=== PATIENT | male | born 1970 | race Caucasian/White ===

== ENCOUNTER 2020-12-12 18:07 | Emergency (ER) | payer OTHER, MEDICAID, SELFPAY ==
[~2020-12-12] VITALS: Ht 165.1 cm; Wt 86.2 kg
[~2020-12-12 18:07] MED LIST: ALBU8.5H8 INH; ARIP30TA PO; BENZ2TAB65 PO; CAT.1 PO; DICL20GE TP; DIPH50CA38 PO; DIVA-74 PO; DIVA500T2 PO; DOCU-192 PO; IBUP-1969 PO; IPRA4AER INH; LISI10TA PO; LOM2.5 PO; MELO15TA13 PO; OMEG1CAP55 PO; OMEP20CA15 PO; RISP2TAB5 PO; TRAZ-251 PO; ZOLP10TA2 PO
--- NOTE | 2020-12-12 18:07 | NUR ---
DR GUTIERRES IN TO ASSESS
--- NOTE | 2020-12-12 18:10 | NUR ---
BIB EMT FROM STREETS DUE TO LBP RESULTING FROM FALL. HX OF DD/MR. POOR HISTORIAN. ALERT, CALM, RESP UNLABORED, NO DISTRESS
[2020-12-12] MEDS ORDERED: HYDROcodone/ACETAMIN 5-325 MG TAB (NORCO/ VICODIN) PO ONE (18:15)
[2020-12-12] MEDS ORDERED: IBUPROFEN 800 MG TABLET PO ONE (18:15)
[2020-12-12 18:24] VITALS: BP_SYST 104
--- NOTE | 2020-12-12 18:32 | NUR ---
BACK FROM X-RAY,. GUARDED GAIT, SLOW TO MOVE DUE TO PAIN
[2020-12-12 18:37] LABS: EOSINOPHILS % (AUTO) 0.3 % (0.0-4.0); HEMOGLOBIN 14.4 g/dL (14.0-18.0); MONOCYTES # (AUTO) 0.5 K/uL (0.0-1.0); NEUTROPHILS % (AUTO) 83.6 % (40.0-70.0); RED CELL DISTRIBUTION WIDTH 13.7 % (9.0-15.0)
--- NOTE | 2020-12-12 18:57 | NUR ---
DR GUTIERRES IN TO ASSESS
[2020-12-12] MEDS ORDERED: IBUP-1971 PO ×2 (18:58)
[2020-12-12] MEDS ORDERED: SOM350 PO ×2 (18:58)
[2020-12-12 19:02] LABS: CALCIUM 9.6 mg/dL (8.4-11.0); CREATININE 2.36 mg/dL (0.55-1.30); POTASSIUM 3.9 mmol/L (3.5-5.1)
[2020-12-12 19:08] LABS: ALBUMIN 3.9 g/dL (3.4-4.8); TOTAL BILIRUBIN 0.4 mg/dL (0.0-1.0)
[2020-12-12 19:22] LABS: BASOPHILS % (AUTO) 0.3 % (0.0-2.0); HEMATOCRIT 42.1 % (36-54); LYMPHOCYTES # (AUTO) 1.7 K/uL (1.0-5.5); MEAN CORPUSCULAR HEMOGLOBIN 34 pg (27-31); MEAN CORPUSCULAR HGB CONC 34 % (32-36); MEAN CORPUSCULAR VOLUME 101 fL (79.0-98.0); MONOCYTES % (AUTO) 3.8 % (1.7-9.3); NEUTROPHILS # (AUTO) 11.6 K/uL (1.8-7.7); PLATELET COUNT (AUTO) 226 K/uL (130-430); RED BLOOD CELL COUNT(AUTO) 4.19 MIL/uL (4.2-6.2); WHITE BLOOD COUNT (AUTO) 13.9 K/uL (4.8-10.8)
[2020-12-12] MEDS ORDERED: INSULIN REGULAR, HUMAN 100 UNITS in NS 99 ML IV ONE ×2 (19:45)
--- NOTE | 2020-12-12 20:08 | NUR ---
ADMITTING ABLE TO REACH FAMILY. PT IS FROM [facility]. STATED THAT THIS HAS HAPPENED BEFORE. WHEN ABLE TO GET COVERED (ELIDA) WILL BE ABLE TO INST[employer] OPERATOR.
--- NOTE | 2020-12-12 20:15 | NUR ---
SPOKE TO ELIDA. STATED SHE WAS ON HER WAY TO PICK PATIENT UP.
[2020-12-12 20:41] VITALS: BP_SYST 104
--- NOTE | 2020-12-12 20:42 | NUR ---
given written and verbal discharge instructions TO ELIDA (WORKER AT [employer]) and verbalizes understanding. DR. NENITA MENDOSA MD discussed with patient the results and treatment provided. Patient in stable condition. ID arm band removed. Rx of MOTRIN/SOMA given. Patient educated on pain management and to follow up with PMD. Pain Scale 0/10 Opportunity for questions provided and answered. Medication side effect fact sheet provided.
[2020-12-14] MEDS ORDERED: IBUP-1971 PO (09:27)
[2020-12-14] MEDS ORDERED: SOM350 PO (09:27)
== END 2020-12-12 20:42 | disposition home or self-care (01) ==
LOC: SED 18:07
DX: S39.012A Strain of muscle, fascia and tendon of lower back, initial encounter (principal); Z79.899 Other long term (current) drug therapy; W18.39XA Other fall on same level, initial encounter; Y93.89 Activity, other specified; Y92.89 Other specified places as the place of occurrence of the external cause; Y99.8 Other external cause status
CPT/HCPCS: 36415; 72100-TC; 80053; 83605; 85025; 99284